=== PATIENT | female | born 1985 | race Caucasian/White ===

== ENCOUNTER 2020-07-17 11:00 | Outpatient (CLI) | payer BC ==
[2020-07-17 22:45] LABS: SARS-CoV-2 MS2 Positive; SARS-CoV-2 N Gene Negative; SARS-CoV-2 S Gene Negative; SARS-CoV-2 by NAA Not Detected (NotDetected); SARS-CoV-2 orf1ab Negative
== END 2020-07-17 11:01 | disposition home or self-care (01) ==
LOC: LABBT 11:00
PROVIDERS: ATTEND Obstetrics & Gynecology
DX: Z01.812 Encounter for preprocedural laboratory examination (principal); Z20.828 Contact with and (suspected) exposure to other viral communicable diseases
CPT/HCPCS: 87635; U0003

== ENCOUNTER 2020-07-22 08:46 | Inpatient (IN) | payer BC ==
[2020-07-22] MEDS ORDERED: Bupivacaine HCl 0.25%/Epi 0.0005/PF 10 ML VIAL FS ONE (09:16)
[2020-07-22 09:17] VITALS: BMI 24.1
[2020-07-22] MEDS ORDERED: Penicillin G Potassium 5 MILL.UNITS VIAL ONE (09:48)
[2020-07-22] MEDS ORDERED: Promethazine HCl 25 MG/ML VIAL IM PRN ×2 (09:53→12:29)
[2020-07-22] MEDS ORDERED: Lidocaine 1% (PF) 30 ML VIAL SC PRN (09:53)
[2020-07-22] MEDS ORDERED: Misoprostol 200 MCG TAB PR PRN (09:53)
[2020-07-22] MEDS ORDERED: Acetaminophen 500 MG TAB PO PRN (09:53)
[2020-07-22] MEDS ORDERED: Ibuprofen 800 MG TAB PO PRN (09:53)
[2020-07-22] MEDS ORDERED: Ondansetron PF 4 MG/2 ML Vial IVP PRN ×2 (09:53→12:29)
[2020-07-22] MEDS ORDERED: NS / Oxytocin 40 units/1000ml 1,000 ML IV PRN (09:53)
[2020-07-22] MEDS ORDERED: Diphenoxylate HCl/Atropine Tablet PO PRN ×2 (09:53)
[2020-07-22] MEDS ORDERED: Butorphanol Tartrate 1 MG/ML VIAL SLOW IVP PRN (09:53)
[2020-07-22] MEDS ORDERED: Penicillin G Potassium 5 MILL.UNITS in Sodium Chloride 0.9% 100 ML IVPB SCH (09:53)
[2020-07-22] MEDS ORDERED: hydrALAZINE 20 MG/ML VIAL SLOW IVP PRN ×2 (09:53→18:43)
[2020-07-22] MEDS ORDERED: Carboprost 250 MCG/ML AMP IM PRN (09:53)
[2020-07-22 10:18] LABS: Hemoglobin 11.9 g/dL (12.0-16.0); Mean Corpuscular HGB CONC 33.1 g/dL (32.0-36.0); Mean Corpuscular Hemoglobin 29.7 pg (27.0-31.0); Mean Corpuscular Volume 89.8 fL (78.0-98.0); Mean Platelet Volume 9.8 fL (7.4-10.4); Platelet Count 152 thou/uL (130-400); RBC Distribution Width 12.1 % (11.5-14.5); Red Blood Cell (RBC) Count 4.01 mill/uL (4.20-5.40); White Blood Cell (WBC) Count 10.7 thou/uL (4.8-10.8)
[2020-07-22 10:45] LABS: Syphilis Antibody Nonreactive (Nonreactive); Syphilis Antibody Index 0.02 S/CO (<1.00 Non-Reactive)
[2020-07-22 10:49] LABS: HBSAg Index 0.21 S/CO (0-0.99); Hep B Surf Ag Non-Reactive S/CO (NonReactive)
[2020-07-22] MEDS ORDERED: Bupivacaine 0.5% 20 ML, fentaNYL Citrate/PF 400 MCG in Sodium Chloride 0.9% 72 ML EPIDURAL SCH (11:15)
[2020-07-22] MEDS ORDERED: DISCONTINUE ALL PREVIOUS NARCOTICS FS SCH (11:15)
[2020-07-22] MEDS ORDERED: diphenhydrAMINE 50 MG/ML VIAL IVP PRN (12:29)
[2020-07-22] MEDS ORDERED: ePHEDrine 50 MG/ML VIAL SLOW IVP PRN (12:29)
[2020-07-22] MEDS ORDERED: Naloxone HCl 0.4 mg/ml Vial IVP PRN ×2 (12:29)
[2020-07-22] MEDS ORDERED: Acetaminophen 325 MG TAB PO PRN (12:29)
[2020-07-22] MEDS ORDERED: Lactated Ringer's 500 ML IV PRN (12:29)
[2020-07-22] MEDS ORDERED: Communication Order-Pharmacy FS SCH (12:30)
[2020-07-22] MEDS ORDERED: Fentanyl 4 mcg/Bupivacaine 0.1% Cassette 100 ML EPIDURAL SCH (12:30)
[2020-07-22] MEDS: Penicillin G 2.5 MILL.units 2.5 MILL.UNITS in Premix Bag 1 BAG IVPB SCH ×2 (14:18→23:14)
[2020-07-22] MEDS: Lactated Ringer's 1,000 ML IV SCH ×2 (14:18→23:14)
[2020-07-22] MEDS ORDERED: NS w/ Oxytocin 30 units 500 ML ONE (17:29)
--- NOTE | 2020-07-22 18:40 | PDOC.OPDEL ---
OB Operative/Delivery Note Delivery Dr/Surgeon: Kai Pre-Delivery Diagnosis: active labor (Prior c/s-TOLAC.....) Procedure/Post Delivery Dx: spontaneous vaginal delivery Weeks gestation: 39 - Findings A Sex: female Weight: 6 lb 14 oz - 1 min: 6 - 5 min: 9 - Additional Findings/Plan Placenta delivered: spontaneous Repaired Obstetrical Laceration: 2nd degree Estimated blood loss: 60 ml qbl Post delivery plan: routine recovery
[2020-07-22] MEDS ORDERED: Lanolin Ointment 7 GM TUBE TOP PRN (18:43)
[2020-07-22] MEDS ORDERED: Preparation H Ointment 28 GM TUBE PR PRN (18:43)
[2020-07-22] MEDS ORDERED: Milk Of Magnesia 30 ML UDCUP PO PRN (18:43)
[2020-07-22] MEDS ORDERED: Bisacodyl 10 MG SUPP PR PRN (18:43)
[2020-07-22] MEDS ORDERED: Benzocaine-Menthol 82.5 ML CAN TOP PRN (18:43)
[2020-07-22] MEDS ORDERED: NS / Oxytocin 40 units/1000ml 1,000 ML IV SCH (18:45)
[2020-07-22] MEDS ORDERED: traMADol HCl 50 MG TAB PO PRN (21:22)
[2020-07-22] MEDS: Ibuprofen 800 MG TAB PO SCH (21:57)
[2020-07-22] MEDS: Docusate Calcium (SURFAK) 240 MG CAP PO SCH (21:59)
[2020-07-23] MEDS: Ibuprofen 800 MG TAB PO SCH ×3 (05:37→22:17)
[2020-07-23] MEDS: Docusate Calcium (SURFAK) 240 MG CAP PO SCH ×2 (08:30→22:17)
[2020-07-23] MEDS: Ferrous Sulfate 325 MG TAB PO SCH ×2 (08:31→16:28)
--- NOTE | 2020-07-23 08:41 | PDOC.PP ---
Post Progress Note Post Day #: 1 PO intake tolerated: yes Flatus: yes Ambulation: yes Vital Signs (12 hours) Temp Pulse Resp BP Pulse Ox 07/23/20 07:39 97.7 F 65 20 102/50 L 98 07/23/20 05:38 98.1 F 61 18 114/75 99 07/23/20 00:15 65 18 107/60 98 07/22/20 21:22 98.8 F 78 18 114/66 99 Weight Weight 132 lb - Physical Examination Abdominal: no distention, appropriately TTP Extremities: negative homans (B) Result Diagrams: 07/22/20 09:54 Additional Labs: Post Labs Hep Bs Antigen Non-Reactive S/CO (NonReactive) 07/22/20 09:54 Blood Type A POSITIVE 07/22/20 10:31 - Assessment/Plan post day 1..Successful .Plan for discharge in AM...
[2020-07-23] MEDS ORDERED: Adacel (T-DAP) 0.5 ML SYRINGE IM ONE (09:00)
[2020-07-23] MEDS ORDERED: Prenatal Vitamin 1 TAB PO SCH (09:00)
[2020-07-24] MEDS: Ibuprofen 800 MG TAB PO SCH (05:32)
[2020-07-24] MEDS: Ferrous Sulfate 325 MG TAB PO SCH (07:25)
[2020-07-24 08:01] VITALS: BP 115/68; TEMP 98.2
--- NOTE | 2020-07-24 08:11 | PDOC.PP ---
Post Progress Note Post Day #: 2 PO intake tolerated: yes Flatus: yes Ambulation: yes Vital Signs (12 hours) Temp Pulse Resp BP Pulse Ox 07/24/20 08:00 98.2 F 81 20 115/68 98 Weight Weight 132 lb - Physical Examination Abdominal: appropriately TTP Extremities: negative homans (B) Result Diagrams: 07/22/20 09:54 Additional Labs: Post Labs Hep Bs Antigen Non-Reactive S/CO (NonReactive) 07/22/20 09:54 Blood Type A POSITIVE 07/22/20 10:31 - Assessment/Plan Post day 2. Doing well. Working on breast feeding. Plan to d/c today. Has f/u in 6 weeks.
== END 2020-07-24 10:15 | disposition home or self-care (01) | DRG 807 ==
LOC: L&D/OP 08:46 → L&D 10:05 → 3SW 21:39
PROVIDERS: ADMIT Obstetrics & Gynecology; ATTEND Obstetrics & Gynecology
PROC: 10E0XZZ Delivery of Products of Conception, External Approach (ICD-10-PCS; principal; 2020-07-22)
PROC: 0KQM0ZZ Repair Perineum Muscle, Open Approach (ICD-10-PCS; 2020-07-22)
DX: O70.1 Second degree perineal laceration during delivery (principal); Z37.0 Single live birth; Z3A.39 39 weeks gestation of pregnancy; O34.219 Maternal care for unspecified type scar from previous cesarean delivery; O99.824 Streptococcus B carrier state complicating childbirth
CPT/HCPCS: 36415; 51702; 85027; 86780; 86850; 86900; 86901; 87340; 99285; J2405; J2540; J3010; J3490